=== PATIENT | male | born 1945 | race Caucasian/White ===

== ENCOUNTER 2018-04-15 16:10 | Emergency (ER) | payer OTHER, BC ==
[2018-04-15 16:17] VITALS: BP 99/66; PULSE 83; TEMP 97.6; BMI 23.3
--- NOTE | 2018-04-15 17:15 | PDOC ---
History of Present Illness - General Chief Complaint: Injury Stated Complaint: FALL Time Seen by Provider: 04/15/18 16:52 History Source: Patient Exam Limitations: No Limitations - History of Present Illness Initial Comments: 04/15/18 16:56 Patient states slipped and fell on wet floor landing on right elbow yesterday night. Had an acute onset of swelling to his elbow but denies immobility. States has full range of motion and is able to twist his wrist but was concerned about the swelling. Occurred: reports: yesterday Severity: reports: mild Pain Location: reports: upper extremity (left elbow) Method of Injury: Yes: direct blow, fall Modifying Factors: improves with: None Loss of Consciousness: no loss of consciousness Associated Symptoms (Fall): denies symptoms Past History - Travel Traveled outside of the country in the last 30 days: No Close contact w/someone who was outside of country & ill: No - Past Medical History Allergies/Adverse Reactions: Allergies Allergy/AdvReac Type Severity Reaction Status Date / Time No Known Allergies Allergy Verified 04/15/18 16:13 Home Medications: Ambulatory Orders Metformin HCl [Glucophage] 500 mg PO BID 04/15/18 Cancer: Yes (prostate) COPD: No Diabetes: Yes - Surgical History Abdominal Surgery: Yes (rt inguinal) - Suicide/Smoking/Psychosocial Hx Smoking History: Never smoked Information on smoking cessation initiated: No Hx Alcohol Use: No Drug/Substance Use Hx: No Substance Use Type: None Trauma Specific PMHX - Complaint Specific PMHX Back Injury: No Neck Injury: No Review of Systems - Review of Systems Able to Perform ROS?: Yes Is the patient limited Turkmen proficient: Yes Constitutional: Yes: See HPI. No: Symptoms Reported HEENTM: No: Symptoms Reported Respiratory: No: Symptoms reported Cardiac (ROS): No: Symptoms Reported Musculoskeletal: Yes: Symptoms Reported, See HPI, Joint Pain, Joint Swelling Integumentary: Yes: Symptoms Reported, See HPI, Bruising All Other Systems: Reviewed and Negative *Physical Exam - Vital Signs Last Vital Signs Temp Pulse Resp BP Pulse Ox 97.6 F 83 18 99/66 100 04/15/18 16:14 04/15/18 16:14 04/15/18 16:14 04/15/18 16:14 04/15/18 16:14 - Physical Exam General Appearance: Yes: Nourished, Appropriately Dressed, Mild Distress HEENT: positive: LAUREN, Normal ENT Inspection, TMs Normal, Pharynx Normal Neck: negative: Tender Musculoskeletal: positive: Normal Inspection Extremity: positive: Normal Capillary Refill, Normal Range of Motion. negative : Normal Inspection (soft tissue swelling to the olecranon/consistent with ruptured bursa. Range of motion is intact and able to supinate and pronate without pain. Strong grasp, flexion and extension of all digits, neurovascular intact to hand. 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, Fully Oriented, Alert, Normal Mood/ Affect, Normal Response, Motor Strength 11/19 ED Treatment Course - RADIOLOGY Radiology Studies Ordered: Category Date Time Status ELBOW-RIGHT [RAD] Stat Radiology 04/15/18 16:53 Ordered Progress Note - Progress Note Progress Note: Olecranon contusion with ruptured bursa, we'll treat conservatively as there is no evidence of infection or fracture/dislocation / has old calcific changes but no acute fracture noted per x-ray *DC/Admit/Observation/Transfer Diagnosis at time of Disposition: Rupture of bursa - Discharge Dispostion Disposition: HOME Condition at time of disposition: Stable Decision to Admit order: No - Referrals Referrals: Vick Montesinos MD [Staff Physician] - - Patient Instructions Printed Discharge Instructions: DI for Elbow Pain Additional Instructions: Rest, ice to area on and off for 15 minutes 4-6 times a day Avoid heavy lifting or exercise until pain and swelling is resolved or until further directed Keep area highly elevated to reduce swelling Use splints/Caleb wrap as directed Followup with orthopedist in one to 2 days if not improving, if significantly improved may wait one week for followup with orthopedist May use ibuprofen 2-200 mg tablets every 6 hours as needed for pain - Post Discharge Activity Forms/Work/School Notes: Back to Work
[2018-04-15] MEDS ORDERED: IBUPROFEN 400 MG TABLET (FP) PO ONE ×2 (17:19→17:27)
== END 2018-04-15 17:28 | disposition home or self-care (01) ==
LOC: JERFT 16:10
DX: S50.01XA Contusion of right elbow, initial encounter (principal); S46.811A Strain of other muscles, fascia and tendons at shoulder and upper arm level, right arm, initial encounter; S56.891A Other injury of other muscles, fascia and tendons at forearm level, right arm, initial encounter; W01.0XXA Fall on same level from slipping, tripping and stumbling without subsequent striking against object, initial encounter; Y93.89 Activity, other specified; Y92.018 Other place in single-family (private) house as the place of occurrence of the external cause; E11.9 Type 2 diabetes mellitus without complications; Z79.84 Long term (current) use of oral hypoglycemic drugs
CPT/HCPCS: 73070-TC-RT-FY; 99281-25